=== PATIENT | male | born 1955 | race Caucasian/White ===

== ENCOUNTER → 2017-06-16 | Outpatient (CLI) | payer BC ==
[~2017-06-16] MED LIST: AMLODIPINE-ATO1 EAC1 PO; APIDRA SQ; ASPIR 8181 MG PO; ATORVASTATIN CA40 MG PO; COLACE100 MG PO; FERREX 150150 MG PO; LANTUS SOL100 UNIT/1 SUBQ; LANTUS100 UNIT/M SQ; LIPITOR 20 MG T20 M1 PO; LISINOPRIL10 MG PO; LOPRESSOR25 PO; MELATONIN 1 MG1 EACH PO; METFORMIN HCL500 MG PO; PACERONE 200 M200 M1 PO; PIOGLITAZONE15 MG; PROSCAR 5MG TABL5 MG PO; PROTONIX40 M1 PO; TOPROL XL25 MG PO; TRAMADOL 50 MG50 MG PO; TRICOR145 MG PO; TYLENOL325 MG PO
== END ==
LOC: NUC 06:51
DX: I25.10 Atherosclerotic heart disease of native coronary artery without angina pectoris (principal)

== ENCOUNTER → 2020-01-14 | Outpatient (CLI) | payer BC | LOC: HYPER 09:47 | DX: E11.622 Type 2 diabetes mellitus with other skin ulcer (principal); L98.411 Non-pressure chronic ulcer of buttock limited to breakdown of skin; L02.31 Cutaneous abscess of buttock; E66.01 Morbid (severe) obesity due to excess calories; I25.10 Atherosclerotic heart disease of native coronary artery without angina pectoris; I10 Essential (primary) hypertension; I48.91 Unspecified atrial fibrillation; I85.00 Esophageal varices without bleeding; K21.9 Gastro-esophageal reflux disease without esophagitis; K74.60 Unspecified cirrhosis of liver; Z68.33 Body mass index [BMI] 33.0-33.9, adult; Z79.4 Long term (current) use of insulin; Z95.1 Presence of aortocoronary bypass graft; Z90.49 Acquired absence of other specified parts of digestive tract ==

== ENCOUNTER → 2020-01-21 | Outpatient (CLI) | payer BC | LOC: HYPER 12:54 | DX: E11.622 Type 2 diabetes mellitus with other skin ulcer (principal); L98.411 Non-pressure chronic ulcer of buttock limited to breakdown of skin; L02.31 Cutaneous abscess of buttock; E66.01 Morbid (severe) obesity due to excess calories; I25.10 Atherosclerotic heart disease of native coronary artery without angina pectoris; I10 Essential (primary) hypertension; I48.91 Unspecified atrial fibrillation; K21.9 Gastro-esophageal reflux disease without esophagitis; K74.60 Unspecified cirrhosis of liver; Z79.4 Long term (current) use of insulin; Z95.1 Presence of aortocoronary bypass graft; Z68.33 Body mass index [BMI] 33.0-33.9, adult ==

== ENCOUNTER → 2020-04-22 | Outpatient (CLI) | payer BC ==
[~2020-04-22] MED LIST changes: +IMDUR 30 MG TAB30 M1 PO; +LYRICA 75 MG CA75 MG PO; +THERA M PLUS T1 EAC2 PO; +XIFAXAN550 M1 PO
== END ==
LOC: SJCVCIMAG 12:38
PROVIDERS: ATTEND Internal Medicine Cardiovascular Disease
DX: I25.10 Atherosclerotic heart disease of native coronary artery without angina pectoris (principal); I48.92 Unspecified atrial flutter; I45.10 Unspecified right bundle-branch block

== ENCOUNTER → 2020-04-24 | Outpatient (CLI) | payer BC ==
[~2020-04-24] VITALS: Ht 182.9 cm; Wt 120.2 kg
[2020-04-24 09:30] LABS: HEMATOCRIT 33.8 % (42.0-52.0); HEMOGLOBIN 10.8 gm/dL (14.0-18.0); MCH 27.1 pg (26.0-34.0); MCV 84.7 fL (80.0-100.0); RBC 3.99 mil/uL (4.50-6.00); RDW 19.2 % (10.5-14.5)
[2020-04-24 09:36] LABS: CALCIUM 9.2 mg/dL (8.5-10.1); CREATININE 1.3 mg/dL (0.7-1.3); POTASSIUM 4.4 mmol/L (3.5-5.1)
[2020-04-24 10:06] VITALS: BP 135/75
--- NOTE | 2020-04-24 15:31 | CATHLAB ---
[facility] [place] [address] INVASIVE PROCEDURE REPORT Name: ANTHONY WASHINGTON Room #: REG MILY [facility]#: [id number] Admission: 04/24/20 Attend Phys: Robert Retana MD Discharge: Date of : 57 Report #: [id number] THIS REPORT FOR: cc: Paco Morel MD, Bryan W. MD Park, Jin S. MD ~ APPROVED REPORT Study performed: 04/24/2020 12:11:58 Patient Details Patient Status: Out-Patient Room #: The patient is a 64 year-old male Event Personnel Robert Retana Gauntlet Pairer, Trinidad Subramanian RTR Teodoroub, Laura Rose RTR Monitor, Elizabeth Hyman RN RN, Hernesto Velasco RTR Monitor, Pelon Zurita RN childbirth educator Performed Art Access - R femoral artery* Left Heart Cath Coronaries, Bypass Grafts [id number] Initial Mod Sed Same Phys/QHP Gr5y [id number] Mod Sed Same Phys/QHP Ea [id number] Hemostasis with Manual pressure Indication Dyspnea, Positive stress test, Chest pain Risk Factors Hypercholesterolemia, Coronary Artery DiseaseHypertension, Diabetes Previous Procedures/Diagnoses Previous CABG Procedure Narrative The Right Groin^ was infiltrated with 1% Lidocaine subcutaneous anesthesia. A PINNACLE 4FR Sheath #[id number] sheath was inserted into the RFA^. Coronary angiography was performed using coronary diagnostic catheters. The right coronary system was accessed and visualized with a JR4 catheter. The left coronary system was accessed and visualized with a JL4 catheter. The left ventricle was accessed and visualized with a JR4 catheter. Hemostasis was obtained with manual pressure following sheath removal without any complications. The patient tolerated the procedure well and there were no [facility] [address] [place] [address] INVASIVE PROCEDURE REPORT Name: ANTHONY WASHINGTON Nuno Room #: REG [facility]#: [id number] Admission: 04/24/20 Attend Phys: Robert Retana MD Discharge: Date of : 57 Report #: [id number] complications associated with the procedure. A hematoma occurred. Intraoperative Conscious Sedation Sedation start time: 1232 Case end Time: 1316 Fentanyl 50 mcg Versed 2 mg Fluoro Time: 5.10 minutes Dose: DAP 32131.80 cGycm2 1515 mGy Contrast Type and Amount: Omnipaque 50 ml Coronary Angiography The patient's coronary anatomy is co- dominant. Diagnostic Cath Left Main The left main artery is a large-caliber vessel, with no flow-limiting lesions. LAD The LAD is a severe occlusion in the proximal segment. There is a patent DORAN graft with a end-to-side anastomosis to the mid LAD. After the anastomosis, there is retrograde and anterograde flow in the [place] LAD system. Diagonal 1 There is a patent sequential SVG with a [id number] anastomosis to the first diagonal artery and an end-to-side anastomosis to a moderate-sized ramus artery. Circumflex The left circumflex artery is a moderate-sized caliber vessel, codominant. Supplies several small caliber obtuse marginal arteries. This artery was not bypassed. There is a moderate stenosis at the ostium, 50 to 60%. OM1 This is a small to moderate sized caliber vessel, with no flow-limiting lesions. OM2 This is a small to moderate sized caliber vessel, with no flow-limiting lesions. OM3 This is a small to moderate sized caliber vessel, with no flow-limiting lesions. Right Coronary The RCA is a severe occlusion midsegment. R PDA There is a patent SVG to the PDA. Left Ventriculography Left Ventriculography was not performed. Ejection Fraction was 60-65% based off patient's Nuclear Cardiac Stress Test. An LVEDP was measured and there is no gradient across the outflow tract. Hemodynamics The aortic pressure is 158/83 mmHg with a mean of 116 mmHg. [facility] [address] [place] [address] INVASIVE PROCEDURE REPORT Name: ANTOHNY WASHINGTON Room #: REG CL M.R.#: [id number] Admission: 04/24/20 Attend Phys: Robert Retana MD Discharge: Date of : 57 Report #: [id number] ventricular pressure is 155/19 mmHg with a mean of mmHg. The left ventricular end diastolic pressure is 39 mmHg. Conclusion 1. There is a patent DORAN graft to the LAD. 2. There is a patent sequential SVG to the first diagonal artery and ramus artery. 3. There is a patent SVG to the PDA. 4. There is a moderate stenosis at the ostium of a codominant left circumflex artery, recommend medical therapy. 5. Normal LV systolic function. 6. Recommend guideline directed medical therapy. <ELECTRONICALLY SIGNED> By: Robert Retana MD 04/24/20 1531 [id number] Robert Retana MD /INF
== END | disposition home or self-care (01) ==
LOC: CATH 07:44
PROVIDERS: ATTEND Internal Medicine Cardiovascular Disease
DX: R07.9 Chest pain, unspecified (principal); R94.39 Abnormal result of other cardiovascular function study; I25.10 Atherosclerotic heart disease of native coronary artery without angina pectoris; I10 Essential (primary) hypertension; E11.9 Type 2 diabetes mellitus without complications; E78.00 Pure hypercholesterolemia, unspecified; Z95.1 Presence of aortocoronary bypass graft; Z98.890 Other specified postprocedural states; Z79.899 Other long term (current) drug therapy; Z90.49 Acquired absence of other specified parts of digestive tract; Z87.442 Personal history of urinary calculi; Z79.4 Long term (current) use of insulin; Z91.041 Radiographic dye allergy status; Z88.0 Allergy status to penicillin

== ENCOUNTER → 2020-05-09 | Outpatient (CLI) | payer BC | LOC: RAD 08:13 | PROVIDERS: ATTEND Internal Medicine Pulmonary Disease | DX: J90 Pleural effusion, not elsewhere classified (principal); I51.7 Cardiomegaly ==

== ENCOUNTER → 2020-05-13 | Outpatient (CLI) | payer BC | LOC: CAT 15:20 | PROVIDERS: ATTEND Internal Medicine Pulmonary Disease | DX: J90 Pleural effusion, not elsewhere classified (principal); J98.11 Atelectasis; R18.8 Other ascites; R16.1 Splenomegaly, not elsewhere classified ==

== ENCOUNTER → 2020-11-13 | Outpatient (CLI) | payer BC | LOC: SJCVCIMAG 08:46 | PROVIDERS: ATTEND Internal Medicine Cardiovascular Disease | DX: I08.8 Other rheumatic multiple valve diseases (principal); I25.10 Atherosclerotic heart disease of native coronary artery without angina pectoris; I10 Essential (primary) hypertension; Z95.1 Presence of aortocoronary bypass graft; Z86.16 Personal history of COVID-19 ==

== ENCOUNTER → 2021-08-11 | Outpatient (CLI) | payer BC | LOC: SJCVCIMAG 09:44 | PROVIDERS: ATTEND Internal Medicine Cardiovascular Disease | DX: I08.3 Combined rheumatic disorders of mitral, aortic and tricuspid valves (principal); R06.02 Shortness of breath; I48.91 Unspecified atrial fibrillation; Z95.1 Presence of aortocoronary bypass graft; Z86.16 Personal history of COVID-19 ==